=== PATIENT | female | born 1995 | race Caucasian/White ===

== ENCOUNTER 2016-08-16 10:49 | Emergency (ER) | payer OTHER ==
[~2016-08-16] VITALS: Ht 152.4 cm; Wt 70.0 kg
[2016-08-17 02:47] VITALS: Ht 152.4 cm; Wt 70.0 kg
[2016-08-17 03:25] LABS: ADD SCAN DIFF NO
[2016-08-17 03:27] LABS: BASOPHILS % 0.3 % (0.0-2.0); EOSINOPHILS # 0.3 10^3/ul (0.0-0.5); EOSINOPHILS % 2.9 % (0.0-7.0); HEMATOCRIT 38.6 % (37.0-47.0); HEMOGLOBIN 12.8 g/dl (12.0-16.0); LYMPHOCYTES # 3.6 10^3/ul (0.8-2.9); LYMPHOCYTES % 32.4 % (15.0-51.0); MEAN CORPUSCULAR HEMOGLOBIN 27.9 pg (29.0-33.0); MEAN CORPUSCULAR HGB CONC 33.2 g/dl (32.0-37.0); MEAN CORPUSCULAR VOLUME 84.1 fl (82.0-101.0); MEAN PLATELET VOLUME 10.2 fl (7.4-10.4); MONOCYTE # 0.6 10^3/ul (0.3-0.9); MONOCYTES % 5.4 % (0.0-11.0); NEUTROPHIL # 6.4 10^3/ul (1.6-7.5); NEUTROPHILS % 58.8 % (39.0-77.0); PLATELET COUNT 421 10^3/UL (140-415); RED BLOOD COUNT 4.59 10^6/ul (4.20-5.40); RED CELL DISTRIBUTION WIDTH 14.6 % (11.5-14.5)
--- NOTE | 2016-08-17 03:28 | RADRPT ---
PROCEDURE: US OB. CLINICAL INDICATION: TECHNIQUE: Transabdominal and transvaginal views of the pelvis are available for review. COMPARISON: There are no similar studies submitted for comparison. FINDINGS: The uterus measures 8.1 x 4.2 x 5.3 cm. There is no evidence of a gestational sac. The uterus and endometrium are normal in appearance. The endometrium is normal in thickness, measuring up to 6.4 m m. The right ovary measures 3.9 x 3.2 x 3.2 cm. The left ovary measures 3.3 x 3.4 x 3.1 cm. Doppler f low is noted to the bilateral ovaries. There is no free fluid. IMPRESSION: No evidence of a gestational sac. Continued follow-up and serial beta HCGs are recommended. Doppler flow to the bilateral ovaries. RPTAT: HIKT .Raymond Simon MD, MD Date Time Electronically viewed and signed by .Raymond Simon MD, MD on 08/17/2016 03:27 .T/
[2016-08-17 03:39] LABS: ADD UMIC YES; UR BILIRUBIN (Dip) 1+ (NEGATIVE); UR BLOOD (Dip) 3+ (NEGATIVE); UR CLARITY SLIGHTLY CLOUDY (CLEAR); UR COLOR DK. RED (YELLOW); UR GLUCOSE (Dip) NEGATIVE (NEGATIVE); UR KETONES (Dip) TRACE (NEGATIVE); UR LEUKOCYTE ESTERASE (Dip) NEGATIVE (NEGATIVE); UR NITRITE (Dip) NEGATIVE (NEGATIVE); UR TOTAL PROTEIN (Dip) 2+ (NEGATIVE); UR UROBILINOGEN (Dip) 0.2 E.U./dL (0.1-1.0)
[2016-08-17 03:55] LABS: ICTOTEST NEGATIVE (NEGATIVE)
[2016-08-17 03:56] LABS: UR BACTERIA MANY; UR SQUAMOUS EPITHELIAL CELL MANY; URINE RBCS >200 /HPF (0)
[2016-08-17 05:12] VITALS: BP 138/89; PULSE 78; RESP 18; TEMP 98.6
--- NOTE | 2016-08-20 08:37 | ERD ---
ER Documentation Chief Complaint Date/Time DATE: 08/20/16 TIME: 08:33 Chief Complaint vag bleed with clots x 2 days, HPI This is a 21-year-old female presents to the ER for vaginal bleeding that started today. Patient states that yesterday she took a test and that it was positive. A0. He does admit to mild pelvic cramping. She denies any vaginal discharge. Patient is using 2-3 pads a day. She denies any dizziness or weakness. ROS 12 point review of systems was done, all negative except per HPI. PMhx/Soc Medical and Surgical Hx: pt denies Medical Hx, pt denies Surgical Hx Hx Alcohol Use: No Hx Substance Use: No Hx Tobacco Use: No Smoking Status: Never smoker Physical Exam Vitals Vital Signs Date Time Temp Pulse Resp B/P Pulse Ox O2 Delivery O2 Flow Rate FiO2 08/17/16 05:12 98.6 78 18 138/89 100 08/17/16 02:47 99.2 84 18 155/102 100 Physical Exam GENERAL: The patient is well developed and appropriate for usual state of health , in no apparent distress. HEENT: Atraumatic. CHEST: Clear to auscultation bilaterally. There are no rales, wheezes or rhonchi. HEART: Regular rate and rhythm. No murmurs, clicks, rubs or gallops. ABDOMEN: Soft, nontender and nondistended. Good bowel sounds. No rebound or guarding. No gross peritonitis. No gross organomegaly or masses. No Friedman sign or McBurney point tenderness. BACK: No midline or flank tenderness NEURO: Alert and oriented Result Diagram: 08/17/16 0255 Results 24 hrs Laboratory Tests Test 08/17/16 02:55 White Blood Count 11.010^3/ul Red Blood Count 4.5910^6/ul Hemoglobin 12.8g/dl Hematocrit 38.6% Mean Corpuscular Volume 84.1fl Mean Corpuscular Hemoglobin 27.9pg Mean Corpuscular Hemoglobin Concent 33.2g/dl Red Cell Distribution Width 14.6% Platelet Count 31181^3/UL Mean Platelet Volume 10.2fl Neutrophils % 58.8% Lymphocytes % 32.4% Monocytes % 5.4% Eosinophils % 2.9% Basophils % 0.3% Nucleated Red Blood Cells % 0.0/100WBC Neutrophils # 6.410^3/ul Lymphocytes # 3.610^3/ul Monocytes # 0.610^3/ul Eosinophils # 0.310^3/ul Basophils # 0.010^3/ul Nucleated Red Blood Cells # 0.010^3/ul Urine Color DK. RED Urine Clarity SLIGHTLY CLOUDY Urine pH 5.5 Urine Specific Wyatt >=1.030 Urine Ketones TRACE Urine Nitrite NEGATIVE Urine Bilirubin 1+ Urine Ictotest NEGATIVE Urine Urobilinogen 0.2 E.U./dL Urine Leukocyte Esterase NEGATIVE Urine Microscopic RBC >200/HPF Urine Microscopic WBC 2-5/HPF Urine Squamous Epithelial Cells MANY Urine Bacteria MANY Urine Hemoglobin 3+ Urine Glucose NEGATIVE% Urine Total Protein 2+ Beta HCG, Quantitative < 2.4mIU/ml Procedures/MDM Differential diagnosis: Threatened , missed , incomplete , ectopic , molar , UTI, pyelonephritis. At this time patient's urine test is negative and her quantitative hCg is less than 2.4, within IUP seen. Patient's test at home may be a false positive. Suspicion for ectopic is low. This is likely patients menstruation. Patient is to follow-up with her primary care doctor within 1-2 days return to ER sooner if symptoms worsen. My medical decision making shared with the patient she understands and agrees with plan. Departure Diagnosis: Primary Impression: Vaginal bleeding Condition: Stable Patient Instructions: Understanding the Normal Menstrual Cycle Additional Instructions: Call your primary care doctor TOMORROW for an appointment during the next 1-2 days.See the doctor sooner or return here if your condition worsens before your appointment time. LUCY ALVES Aug 20, 2016 08:37
== END 2016-08-17 05:14 | disposition home or self-care (01) ==
LOC: E/R 10:49 → FTE 08-17 05:14
DX: O20.9 Hemorrhage in early pregnancy, unspecified (principal); R10.2 Pelvic and perineal pain; Z3A.00 Weeks of gestation of pregnancy not specified
CPT/HCPCS: 36415; 76801; 81001; 84702; 85025; 86900; 86901

== ENCOUNTER 2017-06-03 23:25 | Emergency (ER) | END 2017-06-04 00:58 | disposition home or self-care (01) ==